=== PATIENT | female | born 1955 | race Caucasian/White ===

== ENCOUNTER → 2019-11-04 11:36 | Outpatient (BNVA) | payer BC, SELFPAY | PROVIDERS: Referring Provider Obstetrics & Gynecology; Visit Provider Obstetrics & Gynecology | DX: N39.46 Mixed incontinence (principal) | CPT/HCPCS: 81003 ==

== ENCOUNTER 2020-02-08 10:29 | Observation (INO) | payer MEDICARE, SELFPAY ==
[2020-02-04 10:31] VITALS: BMI 40.5
--- NOTE | 2020-02-04 10:39 | ECG_ITS ---
Measurements Intervals [place] Rate: 48 P: 42 CO: 164 QRS: -6 QRSD: 91 T: 17 QT: 440 QTc: 396 SINUS BRADYCARDIA MINIMAL VOLTAGE CRITERIA FOR LVH, CONSIDER NORMAL VARIANT POSSIBLE ANTERIOR MYOCARDIAL INFARCTION, PROBABLY OLD No previous ECG available for comparison Electronically Signed On 02-04-2020 18:03:26 CDT by Allison Hayes M.D. [email or web address]
[2020-02-04 10:53] LABS: Basophils % 0.4 %; Eosinophils # 0.2 10^3/uL (0.0-0.8); Eosinophils % 3.4 %; Hematocrit 36.4 % (37.0-47.0); Hemoglobin 11.3 g/dL (11.5-15.3); Lymphocytes # 1.9 10^3/uL (0.8-4.8); Lymphocytes % 33.1 %; Mean Corpuscular Hemoglobin 30.7 pg (28.0-34.0); Mean Corpuscular Volume 98.9 fL (81-99); Mean Platelet Volume 10.3 fL (7.4-10.4); Monocytes # 0.5 10^3/uL (0.2-0.9); Monocytes % 8.8 %; Neutrophils # 3.1 10^3/uL (1.8-7.7); Neutrophils % 54.1 %; Nucleated Red Blood Cells % 0 %; Platelet Count 213 10^3/cmm (130-400); Red Blood Count 3.68 10^6/uL (4.1-5.3); Red Cell Distribution Width 13.5 % (12.1-15.1); White Blood Count 5.7 10^3/uL (4.0-10.0)
--- NOTE | 2020-02-04 10:57 | P.ANESASSM_ITS ---
Pre-Anesthetic Assessment Pre-Anesthetic Assessment: Height/Weight: Height 1.63 m Weight 107.048 kg Preop Diagnosis: uterovaginal prolapse, urinary incontinence Proposed Procedure: Operation Date: 02/08/20 07:00 Proposed Procedures p Anterior Colporrhaphy with Benz's Cauldoplasty 19421 18542 R32 N81.2(Not Applicable) - MD mireille Strong Posterior Colporrhaphy(Not Applicable) - Martin Burgess MD s Total Vaginal Hysterectomy w/ poss bilateral salpingo-oophorectomy 70562(Bilateral) - MD mireille Strong Single incision and urethral sling 66751(Not Applicable) - MD mireille Strong Cystoscopy 29884(Not Applicable) - Martin Burgess MD Social: Social History: Alcohol (0cc) and No tobacco Exam: Pre-Anes Outpt Exam: alert, oriented x 3, clear to auscultation bilaterally and regular rate & rhythm Airway: Submandibular: WNL Cervical ROM: WNL MP: 1 Dentition: False (upper ) and Partials (lower) History/ROS: No significant history except as noted Pulmonary: Pulmonary: None reported CV/HEM: CV/HEM: HTN : Comments: incontinence Hepatic: Hepatic: None reported GI: GI: GERD (occ) Metabolic: Metabolic: Morbid obesity Musc/skel: Musc/skel: Lower Back Pain and OA/DJD Neuropsych: Neuropsych: None reported Anesthetic Plan: ASA status: 3 Anesthesia: Anesthesia Evaluation and General Risk of > 500 ml blood loss (7ml/kg in children): Yes, adequate IV access and fluids planned PFSH Anesthesia PFSH: Medical History Gout Hypertension Hypothyroidism Peripheral edema Surgical History History of cataract surgery (~11/2018) both eyes History of dilation and curettage Status post excision of lipoma Upper back Status post tubal ligation Family History Father Diabetes Thyroid disease Brother Diabetes Mother Thyroid disease Hypertension Colon cancer Sister Breast cancer Social History Smoking and tobacco status: never smoked Alcohol intake: current Alcohol intake frequency: holidays/special occasions on ly Substance/Drug Use: never Data Anesthesia CBC & Chem 7: 02/04/20 10:36 Other Labs: Laboratory Results - last 48 hr 02/04/20 10:36 WBC 5.7 RBC 3.68 L Hgb 11.3 L Hct 36.4 L MCV 98.9 MCH 30.7 MCHC 31.0 RDW 13.5 Plt Count 213 MPV 10.3 Neut % (Auto) 54.1 Lymph % (Auto) 33.1 Garden % (Auto) 8.8 Eos % (Auto) 3.4 Baso % (Auto) 0.4 Neut # (Auto) 3.1 Lymph # (Auto) 1.9 Garden # (Auto) 0.5 Eos # (Auto) 0.2 Baso # (Auto) 0.0 Nucleated RBC % (auto) 0 Nucleated RBCs # 0.0 Cardiac Studies: No Data to Display
[2020-02-04 10:59] LABS: Add Urine Microscopic? NO
[2020-02-04 11:04] LABS: Blood Urea Nitrogen 25 mg/dL (8-23); Calcium 9.2 mg/dL (8.5-10.5); Carbon Dioxide 28 mmol/L (22-29); Chloride 109 mmol/L (98-107); Glomerular Filtration Rate 49.7 mL/min (90-130); Glucose 93 mg/dL (65-115); Osmolality Calculated 303 mOsm/kg (285-295); Sodium 148 mmol/L (136-145)
[2020-02-04 11:18] LABS: Bilirubin Urine Neg (NEGATIVE); Blood Urine Neg (Negative); Glucose Urine UA Norm (Normal); Ketones Urine Negative (Negative); Leukocyte Esterase Urine Negative (Negative); Nitrate Urine Negative (Negative); Protein Urine Neg (Negative); Urine Appearance Clear (CLEAR); Urine Color Yellow (Yellow); Urobilinogen Urine Norm (Negative)
[2020-02-08] VITALS (18 sets, daily range): BP systolic 111–144; BP diastolic 61–84; PULSE 43–62; RESP 12–20; TEMP 36.2–36.7; O2SAT 93–99
--- NOTE | 2020-02-08 06:40 | P.HPUD_ITS ---
Surgery/Procedure H&P Update DATE OF PROCEDURE: February 08, 2020 DATE H&P PERFORMED: 02/04/20 H&P UPDATE INFORMATION: I have reviewed H&P completed within last 30 days, I have examined patient prior to procedure, No changes to prior documentation and H&P is in [facility] [place] date indicated PREOP DIAGNOSIS: uterovaginal prolapse, urinary incontinence PLANNED PROCEDURE: Operation Date: 02/08/20 07:00 Proposed Procedures s Anterior Colporrhaphy with Benz's Cauldoplasty 67165 88916 R32 N81.2(Not Applicable) - Martin Burgess MD s Posterior Colporrhaphy(Not Applicable) - Martin Burgess MD p Total Vaginal Hysterectomy w/ poss bilateral salpingo-oophorectomy 08216(Bilateral) - Martin Burgess MD s Single incision and urethral sling 95170(Not Applicable) - Martin Burgess MD s Cystoscopy 97878(Not Applicable) - Martin Burgess MD
--- NOTE | 2020-02-08 06:40 | W.PM.OPSUD ---
Surgery/Procedure H&P Update DATE OF PROCEDURE: February 08, 2020 DATE H&P PERFORMED: 02/04/20 H&P UPDATE INFORMATION: I have reviewed H&P completed within last 30 days, I have examined patient prior to procedure, No changes to prior documentation and [place] is [place] [facility] [place] date indicated PREOP DIAGNOSIS: uterovaginal prolapse, urinary incontinence PLANNED PROCEDURE: Operation Date: 02/08/20 07:00 Proposed Procedures s Anterior Colporrhaphy with Benz's Cauldoplasty 34982 81404 R32 N81.2(Not Applicable) - Martin Burgess MD s Posterior Colporrhaphy(Not Applicable) - Martin Burgess MD p Total Vaginal Hysterectomy w/ poss bilateral salpingo-oophorectomy 62185(Bilateral) - Martin Burgess MD s Single incision and urethral sling 29544(Not Applicable) - Martin Burgess MD s Cystoscopy 65990(Not Applicable) - Martin Burgess MD
[2020-02-08] MEDS: sodium chloride 0.9% 1,000 ML 30 ML IV (06:41)
[2020-02-08] MEDS: ketorolac 30 mg/mL INJ IVP ×2 (06:44→13:50)
--- NOTE | 2020-02-08 07:05 | ANES.PREANE2 ---
Pre-Anesthetic Assessment Pre-Anesthetic Assessment: Height/Weight: Height 1.63 m Weight 107.048 kg Temp Pulse Resp BP Pulse Ox 97.8 F 49 L 16 144/83 97 02/08/20 06:13 02/08/20 06:13 02/08/20 06:13 02/08/20 06:13 02/08/20 06:13 Preop Diagnosis: uterovaginal prolapse, urinary incontinence Proposed Procedure: Operation Date: 02/08/20 07:00 Proposed Procedures s Anterior Colporrhaphy with Benz's Cauldoplasty 46707 30177 R32 N81.2(Not Applicable) - Martin Burgess MD s Posterior Colporrhaphy(Not Applicable) - Martin Burgess MD p Total Vaginal Hysterectomy w/ poss bilateral salpingo-oophorectomy 01758(Bilateral) - Mratin Burgess MD s Single incision and urethral sling 43032(Not Applicable) - Martin Burgess MD s Cystoscopy 58067(Not Applicable) - Martin Burgess MD Was Beta Segun taken within 24 hours: Yes Last intake: Intake Last Liquid Date 02/08/20 Last Liquid Time 05:00 Last Solid Date 02/07/20 Last Solid Time 20:00 Social: Social History: No alcohol and No tobacco Exam: Pre-Anes Outpt Exam: alert, oriented x 3, clear to auscultation bilaterally and regular rate & rhythm Airway: Submandibular: WNL Cervical ROM: WNL MP: 2 (Small mouth opening) Dentition: False History/ROS: No significant complaints Pulmonary: Pulmonary: None reported CV/HEM: CV/HEM: None reported : : None reported Hepatic: Hepatic: None reported GI: GI: None reported Metabolic: Metabolic: Morbid obesity Comments: Gout, Hypothroidism Musc/skel: Musc/skel: None reported Neuropsych: Neuropsych: None reported Anesthetic Plan: ASA status: 3 Anesthesia: General Risk of > 500 ml blood loss (7ml/kg in children): Yes, adequate IV access and fluids planned Meds/Allergies Current Medications: Current Medications Generic Name Dose Route Start Last Admin Trade Name Freq PRN Reason Stop Dose Admin Sodium Chloride 1,000 mls @ 30 ml s/hr 02/08/20 06:00 02/08/20 06:41 Sodium Chloride 0.9% IV 02/09/20 05:59 30 mls/hr .Q24H RADHA Administration PFSH Anesthesia PFSH: Medical History Gout Hypertension Hypothyroidism Peripheral edema Surgical History History of cataract surgery (~11/2018) both eyes History of dilation and curettage Status post excision of lipoma Upper back Status post tubal ligation Family History Father Diabetes Thyroid disease Brother Diabetes Mother Thyroid disease Hypertension Colon cancer Sister Breast cancer Social History Smoking and tobacco status: never smoked Alcohol intake: current Alcohol intake frequency: holidays/special occasions only Data Anesthesia CBC & Chem 7: 02/04/20 10:36 02/04/20 10:36 Cardiac Studies: No Data to Display
--- NOTE | 2020-02-08 07:35 | SUR.OPER ---
0730 - pt's (Erik) notified of surgery start via his cell phone.
[2020-02-08] MEDS: vasopressin 20 unit/mL INJ INJECTION (08:36)
--- NOTE | 2020-02-08 09:49 | P.OP_ITS ---
Operative Report Date of procedure: February 08, 2020 Pre-op Diagnosis: uterovaginal prolapse, Vaginal enterocele, Urinary incontinence Post-op Diagnosis: Incomplete uterovaginal prolapse, Vaginal enterocele, Urinary incontinence Procedure Done: Total vaginal hysterectomy, Benz's culdoplasty, Anterior and posterior repair, Single incision suburethral sling, Cystoscopy Specimens removed/disposition: Uterus, cervix Surgeon: Martin Burgess Informix Developer: None Anesthesia: General Estimated blood loss (mL): 300 IV fluids (mL): 1,200 Complications: None Findings: Second-degree uterine prolapse with second-degree cystocele and second-degree low rectocele. Both ovaries palpated a small Brief History: Patient is a 64-year-old white female 3, para 0-3-0-2 who is postmenopausal. She presented to the office on 11/04/2019 with complaint of urinary incontinence. She reported that it had been present for many years and has been slowly worsening. It has progressed to the point that she was wearing pads daily. She was reporting leaking with coughing, sneezing, laughing , etc. that occurred several times per day. She also reported your urgency symptoms with incontinence which was worse first thing in the morning. She reports leaking with changing in positions especially if she has a full bladder. On exam, she was found to have a first to second-degree uterine prolapse, second-degree central cystocele on Valsalva and second-degree rectocele. She was also noted to have hypermobility of the urethra. She was also noted to have an enterocele. Treatment options were discussed and she is presenting for surgical repair at this time. Procedure: Patient was taken to the operating room where general anesthesia was obtained. She was prepped and draped in usual sterile fashion in the dorsal supine position with legs in Oliverio style stirrups. Sequential compression boots were placed prior to starting the case. Benitez catheter was inserted and exam under anesthesia was performed. She was found to have second-degree uterine prolapse with second-degree cystocele and second-degree low rectocele. Weighted speculum was placed in the vagina and the cervix was grasped with a single-tooth tenaculum. The cervix was circumferentially injected with dilute Pitressin solution. A circumferential incision was made with a knife and the bladder was bluntly dissected off of the lower uterine segment. Posterior cul- de-sac was sharply entered and the peritoneum tagged to the vaginal mucosa in the midline. Long weighted retractor was placed in the posterior cul-de-sac. The uterosacral ligaments were clamped, cut, and suture ligated with 0 Vicryl suture bilaterally. The cardinal ligament complexes were clamped, cut, and suture ligated with 0 Vicryl suture bilaterally. The bladder was sharply dissected away from the uterus and the anterior cul-de-sac entered. A long right angle retractor was used to elevate the bladder away from the uterus. The remaining portions of the broad ligament were serially clamped, cut, and suture ligated with 0 Vicryl suture bilaterally until the uterus was completely excised. The pedicles were inspected and noted to be hemostatic. Both ovaries were retracted laterally and not able to be visualized. They were palpated as small. Decision was made not to remove ovaries. The posterior edge of the vaginal cuff was oversewn with 0 Vicryl suture in a running locking fashion incorporating the peritoneum to the edge of the cuff. This started from the 3:00 position and extended around to the 9:00 position posteriorly. Using 0 Vicryl suture a Benz's culdoplasty was performed. Stitch was placed through the posterior vaginal cuff at the 5 o'clock position. The left uterosacral ligament was incorporated into the stitch and the posterior peritoneum was picked up in a strafing fashion until the right uterosacral ligament was reached. It was incorporated into the stitch and the suture brought back out through the posterior cuff at the 7 o'clock position. This was then held. The anterior vaginal wall was injected with dilute Pitressin solution. Starting at the vaginal cuff, the anterior vaginal wall was undermined and opened in the midline. The edges were grasp with Allis clamps and skin was dissected from the vesico-vaginal fascia using a combination of sharp and blunt dissection. This was extended from the mid urethra to the vaginal cuff and to the lateral aspects of the anterior vaginal wall. Areas bleeding were brought under control using electrocautery. 1 area of bleeding was brought under control using 3-0 chromic suture in [id number] fashion. Using 2-0 Vicryl suture, stitches were placed laterally into the corners of the vesico-vaginal fascia and brought across to the contralateral side picking up the lateral corner. Multiple stitches were placed along the anterior wall. Once all stitches were placed these were tied in the midline essentially eliminating the cystocele. Using the Solyx single incision sling, the sling was passed at the mid urethral level at a 45 degree angle to the urethra through the periurethral tissue and directed behind the pubic rami on the right side. This was repeated in a similar fashion on the contralateral side and the sling was brought up until it just slightly elevated the urethra and periurethral tissue. Benitez catheter was removed and cystoscopy performed. The entire bladder was inspected and no injuries, suture material, or sling material noted in the bladder. No bladder masses noted. Both ureters were noted to be effluxing urine well. Bladder was drained and Benitez catheter was reinserted. Excess vaginal mucosa was excised. The vaginal mucosa was closed using 3-0 Vicryl suture in a running locking fashion. The vaginal cuff was closed using 0 Vicryl suture in a vertical fashion using interrupted [id number] stitches. Once the cuff was fully closed, the enterocele stitch was tied, elevating the posterior vaginal cuff. Benitez catheter was removed and cystoscopy again performed. Both ureters were noted to be effluxing urine well. Bladder was drained and Benitez catheter reinserted. Perineum was injected with dilute Pitressin solution. A wedge shaped piece of skin was excised from the perineum. Posterior vaginal wall was injected with dilute Pitressin solution. The vaginal mucosa was undermined in the midline and skin incision made. The vaginal mucosa was dissected from the rectovaginal fascia using a combination of sharp and blunt dissection to length of approximately three quarters of the length of the posterior wall and to the lateral aspects bilaterally. The rectovaginal fascia was plicated in the midline using interrupted stitches of 2-0 Vicryl suture. This reduced the rectocele. Excess vaginal mucosa was excised. The vaginal mucosa was closed in a running locking fashion using 3-0 Vicryl suture until the hymenal ring was reached and the suture was held. The perineal body was further built up using interrupted stitches of 2-0 Vicryl suture. A transition stitch was made using the previously held 3-0 Vicryl suture and the bulbocavernosus muscles were then incorporated into the stitch and tied in the midline. The superficial portion perineum was reapproximated using 3-0 Vicryl suture in a running fashion. The perineal skin was reapproximated using 3-0 Vicryl suture in a subcuticular fashion. The vagina was packed with 1 inch Nu Gauze. Patient tolerated procedure well. Sponge, needle, and instrument counts were correct. DRAINS: Benitez catheter POSTOPERATIVE STATUS: The patient was transferred to the recovery room in satisfactory condition. Associated Problem List Diagnoses (1) Vaginal enterocele: (2) Urinary incontinence: Qualifiers: Urinary Incontinence type: mixed stress and urge incontinence Qualified Code(s): N39.46 - Mixed incontinence (3) Uterovaginal prolapse, incomplete:
[2020-02-08] MEDS: dextrose 5%-lactated ringers 1,000 ML 125 ML IV ×2 (12:39→19:30)
[2020-02-08] MEDS: phenazopyridine 100 mg Tablet 200 MG PO ×2 (15:08→20:41)
[2020-02-08] MEDS: metoprolol tartrate 25 mg Tablet PO (17:03)
[2020-02-08] MEDS: docusate sodium 100 mg Capsule PO (17:03)
[2020-02-09] VITALS: BP 111/68; PULSE 49; RESP 17; TEMP 36.7; O2SAT 95
[2020-02-09] MEDS: dextrose 5%-lactated ringers 1,000 ML 125 ML IV (02:19)
[2020-02-09 03:59] VITALS: BP 110/70; PULSE 58; RESP 18; TEMP 36.8; O2SAT 95
[2020-02-09 05:05] LABS: Hematocrit 30.8 % (37.0-47.0); Hemoglobin 9.5 g/dL (11.5-15.3); Mean Corpuscular HGB Conc 30.8 g/dL (30.0-36.0); Mean Corpuscular Hemoglobin 30.8 pg (28.0-34.0); Mean Platelet Volume 10.5 fL (7.4-10.4); Platelet Count 195 10^3/cmm (130-400); Red Blood Count 3.08 10^6/uL (4.1-5.3); Red Cell Distribution Width 13.6 % (12.1-15.1); White Blood Count 10.4 10^3/uL (4.0-10.0)
--- NOTE | 2020-02-09 05:11 | PC.NURSE ---
End of Shift: Patient has done well this shift. No c/o pain for any of the shift. States she did have pressure at which scheduled Ibuprofen helped and declined needing hydrocodone. Patient output has been adequate. States she has not passed flatus. No BM this shift. No nausea or vomiting. Vaginal packing in place. Scant bleeding noted on feminine pad.
--- NOTE | 2020-02-09 07:08 | PM.PN ---
Subjective Subjective: Interval history: Patient reports doing well this morning. She states that her pain is been well controlled with the ibuprofen. She denies lightheadedness or dizziness with sitting up in bed. She denies shortness of breath or chest pain. She denies nausea or vomiting and has been tolerating clear liquids. She reports passing flatus this morning. Vitals/I&O/Wt Last Vital Signs Temp 98.3 F 02/09/20 03:59 Pulse 58 L 02/09/20 03:59 Resp 18 02/09/20 03:59 BP 110/70 02/09/20 03:59 Pulse Ox 95 02/09/20 03:59 02/08/20 02/09/20 02/09/20 22:59 06:59 14:59 Intake Total 1426.25 / 1976.25 995.833 / 2972.083 Output Total 400 / 800 400 / 1200 Balance 1026.25 / 1176.25 595.833 / 1772.083 Physical Exam Const: COMMON NORMALS: no acute distress, average body habitus, alert and well nourished GENERAL APPEARANCE: well developed ORIENTATION/CONSCIOUSNESS: Yes oriented to person, Yes oriented to place and Yes oriented to time Resp: COMMON NORMALS: normal respiratory effort and clear to auscultation bilaterally AUSCULTATION: clear to auscultation bilaterally Cardio: COMMON NORMALS: regular rate, regular rhythm, No gallops present (Cardio), No murmurs present (Cardio) and No rub (Cardio) RATE: regular rate RHYTHM: regular rhythm GI: COMMON NORMALS: Soft to palpation, No hepatosplenomegaly present and no masses AUSCULTATION: Yes normoactive bowel sounds PALPATION: Yes Soft to palpation, Yes Tenderness to palpation present (GI) (Mild lower abdominal), Yes No hepatosplenomegaly present and No Hernia present : EXTERNAL FEMALE EXAM: No Hernia present OTHER: Vaginal packing removed. Minimal amount of blood on the packing. Extremity: COMMON NORMALS: no calf tenderness Neuro: SENSORIUM/ORIENTATION: Yes alert, Yes oriented to person, Yes oriented to place and Yes oriented to time Psych: COMMON NORMALS: normal affect MOOD & AFFECT: Yes euthymic mood Skin: COMMON NORMALS: no rashes or lesions noted GENERAL SKIN EXAM: no rashes or lesions noted Urinary Catheter Management^: Benitez: Cath Placed During This Visit: yes Urinary Catheter Date of Insertion: 02/08/20 Urinary Catheter Time of Insertion: 07:25 Data : 02/09/20 04:52 02/04/20 10:36 A&P Assessment and plan (1) Uterovaginal prolapse, incomplete: Postoperative day 1, status post TVH, Benz's culdoplasty, A&P repair, SIS, and cystoscopy. Patient doing well this morning. Advance to regular diet this morning. Encouraged ambulation and increased activities. Benitez catheter to be removed this morning and start voiding trials. Goal is for patient to void at least 100 mL with less than 100 left over in the bladder. If were not able to achieve that, then recommend patient be taught self-catheterization and if she is unable to do that then she will have a Benitez catheter replaced. This was discussed with the patient. Plan is for her to be discharged to home later today. Status: Acute (2) Urinary incontinence: Status: Acute Qualifiers: Urinary Incontinence type: mixed stress and urge incontinence Qualified Code(s): N39.46 - Mixed incontinence (3) Vaginal enterocele: Status: Acute (4) Hypertension: Patient has been continued on her home medications which include metoprolol and losartan. Status: Acute (5) Hypothyroidism: Patient has been continued on her levothyroxine. Status: Acute Attestations Medical Necessity Statement*: Patient to be discharged to home later today. Coding Level of Care Code Acute Ventilator Specialist for [facility] Diagnoses Uterovaginal prolapse, incomplete N81.2 Urinary incontinence N39.46 Urinary Incontinence type: mixed stress and urge incontinence Vaginal enterocele N81.5 Hypertension I10 Hypothyroidism E03.9
--- NOTE | 2020-02-09 07:11 | PC.NURSE ---
Dr Steward at , removed vag packing during assessment, no active bleeding noted, orders received for catheter removal and post void residual, DC fluids, and ambulate patient throughout the day.
[2020-02-09 07:23] VITALS: BP 125/59; PULSE 50; RESP 16; TEMP 36.6; O2SAT 99
[2020-02-09] MEDS: docusate sodium 100 mg Capsule PO (08:17)
[2020-02-09 08:18] VITALS: BP 125/59
[2020-02-09] MEDS: losartan 50 mg Tablet 100 MG PO (08:18)
[2020-02-09] MEDS: levothyroxine 100 mcg Tablet PO (08:18)
[2020-02-09] MEDS: phenazopyridine 100 mg Tablet 200 MG PO ×2 (08:18→14:53)
[2020-02-09] MEDS: metoprolol tartrate 25 mg Tablet PO (08:19)
--- NOTE | 2020-02-09 09:42 | PC.CHAP ---
Pastoral Care Encounter/Spiritual Assessment Type of Contact [] Declined lead qa analyst visit [] Patient/Family/Request visit [] Outpatient visit [] Follow-up visit [] Physician referral [] Code/Alert [x] Routine visit [] Staff referral [] Actively dying [] Patient sleeping [] Family support [] [] Out of room [] Palliative care [] [] Receiving care in room [] Pre-surgical visit [] Trauma [] Long length of stay [] ICU visit [] Other: Relational/Emotional Strength [] Patient feels connected with others/family/visitors/staff [] Distress [] Loneliness/isolation [] Abandonment Spirituality of Patient [] Person of Molly [] Attends Adventist of their Molly [] Believes in Prayer [] Reads Bible or Pentecostalism materials [] There are Spiritual issues to be addressed Sr. Director Interventions [x] Prayer [] Active listening [] Non-anxious presence [] Spiritual/emotional support [] Crisis/trauma care [] Spiritual counseling [] Bereavement support [] Provided bereavement packet [] Provided Bible/devotional materials [] Provided toy/stuffed animal, coloring book to patient or family member [] Provided Communion [] Anointing/[place] [] Salvation [x] Completed spiritual assessment [] Other: Impact on Illness or Injury [] Angry [] Fearful [] Anxious [] Often cries [] Exhaustion [] Unable to work [] Unable to attend orthodoxy [] Unable to walk/stand [] Unable to read [] Unable to drive [] Unable to eat/drink [] Unable to sleep [] Unable to be with family [] Patient intubated [] Other: Summary Patient feeling much better. Patient feels surgery went well. Time spent with patient 10min
[2020-02-09 11:28] VITALS: BP 113/70; PULSE 57; RESP 16; TEMP 36.6; O2SAT 96
--- NOTE | 2020-02-09 15:26 | PM.DCS ---
Discharge Providers Date of Admission: 02/08/20 10:29 Date of Discharge: February 09, 2020 Attending Provider at Admission: Martin Burgess MD Attending Provider at Discharge: Martin Burgess MD Primary Care Provider: Dustin Moran DO Diagnoses at Discharge Discharge Diagnosis (1) Uterovaginal prolapse, incomplete: Status: Acute (2) Urinary incontinence: Status: Acute Qualifiers: Urinary Incontinence type: mixed stress and urge incontinence Qualified Code(s): N39.46 - Mixed incontinence (3) Vaginal enterocele: Status: Acute (4) Hypertension: Status: Acute (5) Hypothyroidism: Status: Acute Reason for Visit Reason for Visit: Urinary Incontinence, Uterovaginal Prolapse Hospital Course Hospital Course: Patient is a 64-year-old white female 3, para 0-3-0-2 who is postmenopausal. Patient had presented to the office on 11/04/2019 complaining of urinary incontinence. This is been present for many years and was slowly worsening. It had progressed to the point of having to wear pads daily. She leaks with cough, sneeze, laugh, etc. On exam, she had been found to have a first to second-degree uterine prolapse, second-degree cystocele on Valsalva and second-degree rectocele. She also had hypermobility of the urethra. Enterocele was also noted on exam. Treatment options were discussed and she presenting for surgical treatment. She had a total vaginal hysterectomy, Benz's culdoplasty, anterior and posterior vaginal repair, and single incision suburethral sling with cystoscopy performed on 02/08/2020. She did well following surgery. POSTOPERATIVE DAY 1 Patient was doing well in the morning. She was tolerating clear liquids without nausea or vomiting. She denied lightheadedness or dizziness with sitting up in bed. Her pain was well controlled on oral medications. She was afebrile with stable vital signs. Benitez catheter was discontinued and voiding trial started. Diet was advanced to a regular diet. Activities were increased. On voiding trials, she had adequate voids with low residual. She was discharged to home on postoperative day 1. Discharge instructions were discussed with her. Patient was to follow-up in the office in 2 and 6 weeks following surgery. Physical Exam Urinary Catheter Management^: Benitez: Cath Placed During This Visit: yes, but has since been removed by the nurse Reason for Continuing Indwelling Catheter: Decision to DC Catheter Urinary Catheter Date of Insertion: 02/08/20 Urinary Catheter Time of Insertion: 07:25 Date Urinary Catheter Removed: 02/09/20 Time Urinary Catheter Discontinued: 07:36 Discharge Data Data Completed and Pending: Pending at discharge Category Date Time Status Pathology: Surgic al [PTH] Routine Pth 02/08/20 08:35 Received Labs from last 24 hours 02/09/20 04:52 WBC 10.4 H RBC 3.08 L Hgb 9.5 L Hct 30.8 L MCV 100.0 H MCH 30.8 MCHC 30.8 RDW 13.6 Plt Count 195 MPV 10.5 H Vitals: Last Vital Signs Temp 97.9 F 02/09/20 11:28 Pulse 57 L 02/09/20 11:28 Resp 16 02/09/20 11:28 BP 113/70 02/09/20 11:28 Pulse Ox 96 02/09/20 11:28 Discharge Plan Discharge Patient Disposition: Home, Self-Care Condition: Stable Prescriptions: New hydrocodone-acetaminophen 5-325 mg Tablet 1 - 2 tab PO Q6H PRN (Reason: Moderate To Severe Pain) Qty: 10 RF: 0 Continued metoprolol tartrate 25 mg tablet 25 mg PO BID RF: 0 losartan 100 mg tablet 100 mg PO DAILY RF: 0 furosemide 40 mg tablet 40 mg PO DAILY RF: 0 levothyroxine 100 mcg capsule 100 mcg PO DAILY RF: 0 allopurinol 100 mg tablet 100 mg PO BID RF: 0 scopolamine base 1 mg over 3 days patch 3 day 1 patch TRANSDERMA ONCE Qty: 1 RF: 0 Premarin 0.625 mg/gram Cream 0.625 mg VAGINAL DAILY RF: 0 Discharge Orders: Discharge Order (Routine); Ordered 02/09/20 Ordered By: Martin Burgess Referrals: Martin Burgess MD [Physician] - 02/21/20 9:45 am (APPOINTMENT WITH [facility] 13 AT 12:45 Keep scheduled appointments in 2 and 6 weeks) Discharge Diet: Regular Discharge Activity: Limit activity as instructed Patient Instructions: Hydrocodone/Acetaminophen (By mouth), Urinary Incontinence (GEN), Posterior Vaginal Repair (DC) Discharge Date/Time: 02/09/20 15:55 Discharge Attestations Time Spent in Discharge Care*: less than 30 min Quality Metrics Clinical Quality Measures During this hospital stay, did patient experience: None Coding Level of Care Code 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
[2020-02-09 15:49] VITALS: BP 113/70; PULSE 57; RESP 16; TEMP 36.6; O2SAT 96
== END 2020-02-09 15:55 | disposition home or self-care (01) ==
LOC: MEDSURG 10:40
PROVIDERS: Admitting Provider Obstetrics & Gynecology; PCP Family Medicine; Visit Provider Obstetrics & Gynecology
PROC: 0JQC0ZZ Repair Pelvic Region Subcutaneous Tissue and Fascia, Open Approach (ICD-10-PCS; CPT 57240; principal; 2020-02-08 07:00)
PROC: (CPT 57250; 2020-02-08 07:00)
PROC: (CPT 57260; 2020-02-08 07:00)
PROC: (CPT 57288; 2020-02-08 07:00)
PROC: 0TJB8ZZ Inspection of Bladder, Via Natural or Artificial Opening Endoscopic (ICD-10-PCS; CPT 52000; 2020-02-08 07:00)
DX: N81.2 Incomplete uterovaginal prolapse (principal); N39.46 Mixed incontinence; I10 Essential (primary) hypertension; E03.9 Hypothyroidism, unspecified; K21.9 Gastro-esophageal reflux disease without esophagitis; E66.01 Morbid (severe) obesity due to excess calories; Z68.41 Body mass index [BMI] 40.0-44.9, adult; M19.90 Unspecified osteoarthritis, unspecified site
CPT/HCPCS: 57260; 57288; 58270; 12345; 36415; 51798; 80048; 81003; 85025; 85027; 86850; 86900; 87086; 88307; 93005; 96365; 96374; 96375; C1771; G0378; J0131; J0690; J1100; J1885; J2001; J2405; J2704; J3010; J3490; J7030

== ENCOUNTER 2020-08-21 13:08 | Outpatient (CLI) | payer MEDICARE, SELFPAY ==
--- NOTE | 2020-08-21 13:30 | USCV_ITS ---
Nadeen Nelson Age: 65 Gender: F : 1955 Exam Date: 08/21/2020 13:27 Ordering Phys: Allison Hayes MD ([email or web address]) Technologist: Geraldo Sheridan [place] [facility] [place]: [place] BP: 125 / 75 HR: 55 Rhythm: Sinus Technical Quality: Fair MEASUREMENTS (Male / Female) Normal Values 2D ECHO LV Diastolic Diameter PLAX 4.3 cm 4.2 - 5.9 / 3.9 - 5.3 cm LV Systolic Diameter PLAX 2.3 cm IVS Diastolic Thickness 1.2 cm 0.6 - 1.0 / 0.6 - 0.9 cm IVS Systolic Thickness 1.6 cm LVPW Diastolic Thickness 1.1 cm 0.6 - 1.0 / 0.6 - 0.9 cm LVPW Systolic Thickness 1.3 cm LVOT Diameter 2.1 cm LV Ejection Fraction 2D Teich 77.0 % LV Ejection Fraction MOD 2C 69.6 % LV Ejection Fraction 2C AL 70.8 % LA Diameter 3.9 cm LA Width 3.5 cm LA Height 6.1 cm RA Width 4.0 cm RA Height 5.2 cm Aorta at Sinotubular Diameter 2.3 cm M-MODE LV Diastolic Diameter MM 5.6 cm 4.2 - 5.9 / 3.9 - 5.3 cm LV Systolic Diameter MM 3.4 cm LV Ejection Fraction MM Teich 69.3 % IVS Diastolic Thickness MM 0.8 cm 0.6 - 1.0 / 0.6 - 0.9 cm IVS Systolic Thickness MM 1.7 cm LVPW Diastolic Thickness MM 1.3 cm 0.6 - 1.0 / 0.6 - 0.9 cm LVPW Systolic Thickness MM 2.0 cm RV Diastolic Diameter MM 1.2 cm Aortic Annulus Diameter 3.3 cm LA Ao Ratio MM 1.3 MV E Point Septal Separation 1.3 cm DOPPLER AV Peak Velocity 186.7 cm/s LVOT Peak Velocity 131.0 cm/s AV Area Cont Eq vti 2.4 cm squared AV Area Cont Eq pk 2.4 cm squared MV Area PHT 5.0 cm squared Mitral E to A Ratio 0.7 MV E' Velocity 50.0 cm/s Mitral E to MV E' Ratio 10.3 Mitral E to LV E' Lateral Ratio 10.3 Mitral E to LV E' Septal Ratio 10.3 TR Peak Velocity 147.7 cm/s TR Peak Gradient 8.7 mmHg TV Peak E Velocity 87.0 cm/s Right Atrial Pressure 3.0 mmHg Pulmonary Artery Systolic Pressu 11.7 mmHg FINDINGS Left Ventricle Normal left ventricular size, systolic function and wall thickness, with no regional wall motion abnormalities. Left ventricular ejection fraction is estimated at 60 %. Indeterminate diastolic function. Right Ventricle Normal right ventricular size and systolic function. Tricuspid valve regurgitant jet is inadequate for estimation of right ventricular systolic pressure. Right Atrium Normal right atrial size. Right atrial pressure estimated at 3 mmHg. Left Atrium Mildly increased left atrial size. Mitral Valve Moderate mitral annular calcification. Mildly thickened mitral valve. No mitral valve stenosis. Trace mitral valve regurgitation. Aortic Valve Aortic valve not well visualized. No aortic valve stenosis. No aortic valve regurgitation. Tricuspid Valve Structurally normal tricuspid valve. No tricuspid valve stenosis. Trace to mild tricuspid valve regurgitation. Pulmonic Valve Pulmonic valve not well visualized. No pulmonary valve stenosis. Trace pulmonary valve regurgitation. Pericardium No pericardial effusion. Aorta Normal size aortic root and proximal ascending aorta. Normal- sized inferior vena cava. CONCLUSIONS 1. Normal left ventricular size, systolic function and wall thickness, with no regional wall motion abnormalities. Left ventricular ejection fraction is estimated at 60 %. Indeterminate diastolic function. 2. Normal right ventricle size and systolic function. 3. Mildly increased left atrial size. 4. Trace to mild tricuspid valve regurgitation. 5. No prior similar studies to compare Allison Hayes MD (Electronically Signed) Final Date: 22 August 2020 18:02 S
== END 2020-08-21 13:09 | disposition home or self-care (01) ==
LOC: US 13:09
PROVIDERS: PCP Family Medicine; Visit Provider Internal Medicine Cardiovascular Disease
DX: R01.1 Cardiac murmur, unspecified (principal); I07.1 Rheumatic tricuspid insufficiency
CPT/HCPCS: 93306

== ENCOUNTER 2020-09-25 10:01 | Outpatient (CLI) | payer MEDICARE, SELFPAY ==
--- NOTE | 2020-09-25 10:13 | MM_ITS ---
WS: [id number] SCREENING DIGITAL MAMMOGRAM WITH CAD HISTORY: SCREENING COMPARISON: 07/26/2019, 05/27/2018 and 04/27/2015 Bilateral CC and MLO views submitted. Computer aided detection analyzed. Breast composition: There are scattered areas of fibroglandular density. Asymmetry measuring 12 mm al mariela the medial inferior LEFT breast slightly more prominent as compared to the most recent study. Not seen on the examination from 2018. Additional scattered fibroglandular asymmetries are stable. MM/[place] [id number] IMPRESSION: BI-RADS: 0-Incomplete: Need additional imaging evaluation FOLLOW UP: Need Additional Imaging LEFT breast: Spot compression views (CC and MLO). True ML. Ultrasound to follow if abnormality persists.
== END 2020-09-25 10:02 | disposition home or self-care (01) ==
LOC: RADSHAW 10:06
PROVIDERS: PCP Family Medicine; Visit Provider Family Medicine
DX: Z12.31 Encounter for screening mammogram for malignant neoplasm of breast (principal); N64.89 Other specified disorders of breast
CPT/HCPCS: 77067

== ENCOUNTER 2020-10-30 08:13 | Outpatient (CLI) | payer MEDICARE, SELFPAY ==
--- NOTE | 2020-10-30 08:20 | US_ITS ---
WS: [id number] ADDITIONAL VIEWS LEFT MAMMOGRAM LEFT BREAST ULTRASOUND HISTORY: INCONCLUSIVE MAMMOGRAM COMPARISON: 09/25/2020, 07/26/2019 and 05/27/2018 LEFT MAMMOGRAM: Spot compression views and true ML. Asymmetry persists in the medial inferior LEFT breast. Slightly less nodular in appearance and more e longated. No distortion or calcifications. LEFT BREAST ULTRASOUND 2-D and color Doppler imaging submitted. At 6:00 hypoechoic lobulated nodule may be a complex cyst measuring 6 x 4 x 2 mm. No increased vascul arity. At 9:00, 2 cm from the nipple is an elongated hypoechoic mass with peripheral increased vascul arity measuring 1.1 x 0.9 x 0.5 cm. There is an adjacent small nodule which is more hypoechoic measur ing 4 x 5 x 2 mm. US/US breast LT limited* [id number] IMPRESSION: BI-RADS: 4-Suspicious Finding-Biopsy Should Be Considered FOLLOW UP: Biopsy Recommended Biopsy recommended of the hypoechoic mass which is elongated at 9:00, 2 cm from the nipple in the LEFT breast. Ultrasound biopsy recommended. This corresponds in size and appearance as compared to the mammogram. Notified Dustin Moran DO at 10/30/2020 9:21 AM. LEFT a message at [facility].
== END 2020-10-30 08:14 | disposition home or self-care (01) ==
LOC: RADSHAW 08:16
PROVIDERS: PCP Family Medicine; Visit Provider Family Medicine
DX: R92.2 Inconclusive mammogram (principal); N63.25 Unspecified lump in the left breast, overlapping quadrants
CPT/HCPCS: 76642; 77065

== ENCOUNTER 2020-11-14 12:11 | Outpatient (CLI) | payer MEDICARE, SELFPAY ==
--- NOTE | 2020-11-14 12:17 | US_ITS ---
WS: [id number] ULTRASOUND-GUIDED LEFT BREAST BIOPSY CLINICAL INFORMATION: R92.8 - Other abnormal and inconclusive findings on diagnostic imaging of breas t COMPARISON: None. FINDINGS: The procedure including risks, benefits, and complications were discussed with the patient who agreed to proceed. Using sterile technique patient was prepped and draped in the usual sterile fashion. Aft er 1% lidocaine utilizing real-time ultrasound guidance 5 14-gauge cores were obtained of the left br east lesion at the 9 o'clock position. Subsequently a titanium clip was placed in the biopsy cavity.N o immediate complications. PATHOLOGY DEMONSTRATES A. Breast, left, biopsy: -Benign breast tissue with fibrocystic changes and stromal sclerosis. -No malignancy identified. US/[place] [id number] IMPRESSION: 1. Uncomplicated ultrasound-guided left breast biopsy. 2. The pathology demonstrates benign breast tissue. BI-RADS: 2-Benign FOLLOW UP: 1 Year Follow-up RECOMMEND RETURN TO ANNUAL SCREENING MAMMOGRAPHY.
== END 2020-11-14 12:12 | disposition home or self-care (01) ==
LOC: RAD 12:16
PROVIDERS: PCP Family Medicine; Visit Provider Surgery
DX: R92.8 Other abnormal and inconclusive findings on diagnostic imaging of breast (principal)
CPT/HCPCS: 19083; 88305

== ENCOUNTER → 2021-05-22 00:01 | Outpatient (BNVA) | payer MEDICARE, SELFPAY | PROVIDERS: PCP Family Medicine; Referring Provider Dermatology; Visit Provider Dermatology | DX: Z01.89 Encounter for other specified special examinations (principal) ==

== ENCOUNTER 2021-10-11 06:00 | Outpatient (RCR) | payer MEDICARE, SELFPAY | END 2021-10-29 23:59 | disposition home or self-care (01) | LOC: MPT 06:00 | PROVIDERS: PCP Family Medicine; Referring Provider Physical Medicine & Rehabilitation; Visit Provider Physical Medicine & Rehabilitation | DX: M25.511 Pain in right shoulder (principal) | CPT/HCPCS: 97110; 97140; 97161 ==

== ENCOUNTER 2021-10-30 06:00 | Outpatient (RCR) | payer MEDICARE, SELFPAY | END 2021-11-06 23:59 | disposition home or self-care (01) | LOC: MPT 06:00 | PROVIDERS: PCP Family Medicine; Referring Provider Physical Medicine & Rehabilitation; Visit Provider Physical Medicine & Rehabilitation | DX: M25.511 Pain in right shoulder (principal) | CPT/HCPCS: 97110 ==

== ENCOUNTER → 2021-11-13 09:55 | Outpatient (BNVA) | payer SELFPAY | PROVIDERS: PCP Family Medicine; Referring Provider Dermatology; Visit Provider Dermatology | DX: Z01.89 Encounter for other specified special examinations (principal) ==

== ENCOUNTER → 2022-07-05 09:24 | Outpatient (BNVA) | payer MEDICARE, SELFPAY | PROVIDERS: PCP Family Medicine; Visit Provider Family Medicine | DX: R05.9 Cough, unspecified (principal); M25.561 Pain in right knee | CPT/HCPCS: 71046; 73560 ==

== ENCOUNTER → 2022-08-01 10:50 | Outpatient (BNVA) | payer MEDICARE, SELFPAY | PROVIDERS: PCP Family Medicine; Visit Provider Internal Medicine Cardiovascular Disease | DX: R00.2 Palpitations (principal); I10 Essential (primary) hypertension; R00.1 Bradycardia, unspecified | CPT/HCPCS: 99214 ==

== ENCOUNTER 2022-10-19 05:28 | Emergency (ER) | payer MEDICARE, SELFPAY ==
[2022-10-19] VITALS (7 sets, daily range): BP systolic 166–197; BP diastolic 85–90; PULSE 46–50; RESP 16; TEMP 36.6; O2SAT 95–99; BMI 40.1
--- NOTE | 2022-10-19 06:31 | CTR_ITS ---
PROCEDURE INFORMATION: Exam: CT Head Without Contrast Exam date and time: 10/19/2022 6:42 AM Age: 67 years old Clinical indication: Pain; Headache; Migraine; Aura effect not specified; Additional info: Headache, whol, david intracranial bleed TECHNIQUE: Imaging protocol: Computed tomography of the head without contrast. Radiation optimization: All CT scans at this facility use at least one of these dose optimization techniques: automated exposure control; mA and/or kV adjustment per patient size (includes targeted exams where dose is matched to clinical indication); or iterative reconstruction. Other protocol: This patient has received 0 known CTs and 0 known cardiac nuclear medicine studies in the 12 months prior to the current study. COMPARISON: No relevant prior studies available. RADIATION DOSE METRICS: Total DLP (mGy-cm): 1026.28 FINDINGS: Brain: No acute intracranial hemorrhage or mass effect. No definite acute infarct by CT. Cerebral ventricles: Ventricle size is normal for age. Paranasal sinuses: Prominent opacity/fluid in the frontal sinuses, almost completely opacifying the sinuses. Much of the fluid is relatively high in attenuation, suggesting a chronic component. Still, superimposed acute sinusitis is possible, please correlate clinically. Included paranasal sinuses otherwise appear essentially clear. Mastoid air cells: No significant acute finding. Bones/joints: No definite acute skull fracture. Soft tissues: No significant acute finding. Vasculature: Vascular calcifications in the internal carotid arteries. CT/CT head wo con* [id number] IMPRESSION: 1. No acute intracranial hemorrhage or mass effect. 2. Paranasal sinus findings as discussed above. 3. Other findings discussed above.
[2022-10-19] MEDS: acetaminophen 500 mg Tablet 1000 MG PO (07:18)
[2022-10-19] MEDS: sodium chloride 0.9% 1,000 ML 999 ML IV (07:20)
[2022-10-19] MEDS: diphenhydrAMINE 50 mg/mL SDV 1mL 25 MG IVP (07:23)
[2022-10-19] MEDS: prochlorperazine 10 mg/2 mL Inj IVP (07:29)
--- NOTE | 2022-10-19 07:45 | PC.NURSE ---
Addendum entered by Nya Mcneil RN 10/19/22 07:46: pt reports this is normal for her Original Note: Dr Vides notified pt's heart rate ranging 44-50s
--- NOTE | 2022-10-19 07:57 | PC.NURSE ---
pt reports she feels restless and unable to get comfortable. Dr. Vides notified, physician to room to speak with pt
--- NOTE | 2022-10-19 08:27 | W.ED.HA ---
HPI - Headache General: Chief Complaint: Headache Stated Complaint: migraine, n/v Time Seen by Provider: 10/19/22 05:53 History of Present Illness: 67-year-old female with past medical history of migraines presenting with worst migraine she has ever had. States at home she takes Excedrin and Tylenol for migraines however this has not improved his migraine whatsoever. The migraine started yesterday at approximately 9 AM suddenly and progressively got worse. It progressed to maximum intensity over the course of 30 minutes and has not abated. She states that is associated with instability on her feet and intractable nausea and vomiting. This intractable nausea and vomiting is atypical for her. Denies fevers, sweats, chills, neck pain. Ambulated to the emergency department. 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 Associated symptoms: Reports nausea and vomiting; Deny chest pain, fever(s) or rash Review of Systems General: Reports: 10 or more systems reviewed and unremarkable except in HPI and below Const: Denies: fever(s), chills, body aches or change in appetite Eyes: Reports: eye discomfort; Denies: change in vision, blurry vision or blind spots ENMT: Denies: throat pain, uvular edema, enlarged tonsils or odynophagia Card: Denies: chest pain, palpitations or irregular heart rhythm Resp: Denies: dyspnea or productive cough GI: Reports: nausea and vomiting; Denies: abdominal pain : Denies: flank pain or difficulty voiding Musc: Denies: neck pain or back pain Skin/Breast: Denies: rash or pruritus Neuro: Reports: headache(s) and other ([place] lightheaded when walking around.); Denies: numbness in extremities, weakness in extremities, sensory changes, lack of coordination, difficulty walking, frequent falls or behavioral changes Psych: Denies: anxiety or depression Endo: Denies: polyuria, polydipsia or tired all the time Juanito/Lymph: Denies: easy bruising or easy bleeding All/Imm: Denies: urticaria or throat swelling PFSH ED PFSH: Medical History Abnormal mammogram of left breast Bradycardia Gout Hypertension Hypothyroidism Surgical History History of cataract surgery (~11/2018) both eyes History of dilation and curettage History of total vaginal hysterectomy (02/08/20) With Benz's culdoplasty, A&P repair, SIS sling. [place]formed by Dr. Martin Burgess at [facility] [place] Status post excision of lipoma Upper back Status post tubal ligation Family History Father Diabetes Thyroid disease Brother Diabetes Mother Thyroid disease Hypertension Colon cancer Sister Breast cancer Social History Smoking and tobacco status: never smoked Alcohol intake: current Alcohol intake frequency: holidays/special occasions only Other details last substance use: Denies drug use. Female Reproductive History: Spontaneous abortions: No Physical Exam Const: COMMON NORMALS: no acute distress and patient oriented x3 EXAM LIMITATIONS: no altered mental status and no behavioral limitations GENERAL APPEARANCE: cooperative and anxious HENMT: COMMON NORMALS: normocephalic, atraumatic, hearing grossly normal bilaterally, external ears normal and Normal external nose present HEAD & SCALP: normocephalic and atraumatic FACE & SINUS: normal facial exam NOSE: Normal external nose present EXTERNAL EAR: Yes external ears normal THROAT: no uvular edema Eye: COMMON NORMALS: Equal, round and reactive pupils present, EOMs intact bilaterally, conjunctivae normal and no scleral icterus GENERAL EYE: appearance normal, both eyes and all related structures and normal light reflex VISUAL GONZALEZ: No peripheral vision loss CONJUNCTIVA: Yes conjunctivae normal SCLERA: sclerae normal PUPIL: Yes Equal, round and reactive pupils present DIRECT OPHTHALMOSCOPY: Yes normal light reflex Neck/C-Spine: COMMON NORMALS: full ROM CERVICAL SPINE: Yes cervical ROM normal Lymph: LYMPHATIC: no lymphadenopathy noted Chest: COMMONS NORMALS: normal inspection of the chest and normal palpation of entire chest wall Neuro: COMMON NORMALS: patient oriented x3 Course Vital Signs: Vital signs: Vital Signs Temperature 97.8 F 10/19/22 05:32 Pulse Rate 50 L 10/19/22 08:30 Respiratory Rate 16 10/19/22 07:38 Blood Pressure 179/88 10/19/22 09:00 Pulse Oximetry 99 10/19/22 08:30 Oxygen Delivery Me thod 10/19/22 08:30 MDM - Headache Medical Decision Making 67-year-old female with headache worse from baseline. Head CT negative. Vitals nonactionable. Urinalysis negative. Considered delayed occult intracranial hemorrhage/subarachnoid hemorrhage, migrainous headache acute on chronic, tension headache, electrolyte derangements, anemia, other referred sources of head pain. No evidence of these on physical examination today. And patient discharged. Advised of findings during his encounter and told to return for any increasing symptoms. 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 Lab Data Radiology Impressions Head CT 10/19/22 06:31 IMPRESSION: 1. No acute intracranial hemorrhage or mass effect. 2. Paranasal sinus findings as discussed above. 3. Other findings discussed above. Laboratory Results Urine Color Yellow (Yellow) 10/19/22 06:22 Urine Appearance Clear (CLEAR) 10/19/22 06:22 Urine pH 5 (5-7) 10/19/22 06:22 Ur Specific [place] 1.020 (1.005-1.030) 10/19/22 06:22 Urine Protein Neg (Negative) 10/19/22 06:22 Urine Glucose (UA) Norm (Normal) 10/19/22 06:22 Urine Ketones Negative (Negative) 10/19/22 06:22 Urine Blood Neg (Negative) 10/19/22 06:22 Urine Nitrate Negative (Negative) 10/19/22 06:22 Urine Bilirubin Neg (Negative) 10/19/22 06:22 Urine Urobilinogen Norm mg/dL (Negative) 10/19/22 06:22 Ur Leukocyte Esterase Negative (Negative) 10/19/22 06:[address] Head: My impression: No acute intracranial pathology Discharge Plan Discharge Patient Disposition: Home, Self-Care w Plan Readm Clinical Impression: Migraine Condition: Stable Prescriptions: No Action metoprolol tartrate 25 mg tablet 25 mg PO BID losartan 100 mg tablet 100 mg PO DAILY furosemide 40 mg tablet 40 mg PO DAILY allopurinol 100 mg tablet 100 mg PO DAILY levothyroxine 100 mcg capsule 125 mcg PO DAILY ibuprofen 600 mg tablet 600 mg PO Q8H PRN multivitamin Tablet 1 tab PO DAILY cholecalciferol (vitamin D3) 125 mcg (5,000 unit) tablet 125 mcg PO DAILY zinc 50 mg tablet 50 mg PO DAILY ascorbate calcium (vitamin C) 500 mg tablet 500 mg PO DAILY paroxetine HCl 20 mg tablet 20 mg PO DAILY acetaminophen [Arthritis Pain Relief (acetam)] 650 mg tablet extended release 650 mg PO Q8H PRN Premarin 0.625 mg/gram cream 0.625 mg VAGINAL .COMPLEX PRN Rx Instructions: 0.625 mg vaginal Twice weekly; PRN; Discharge Orders: Discharge ED (Routine); Ordered 10/19/22 Ordered By: Dustin Vides Referrals: Dustin Moran DO [Primary Care Provider] - (for headache follow-up. Return to the emergency department immediately for failure of resolution of her symptoms, new symptoms, other concerning findings 2.) Discharge Diet: Usual diet Discharge Activity: Resume usual activity Coding Level of Care Code ED Fire Pilot for Alejandro Mills
[2022-10-19 08:52] LABS: Add Urine Microscopic? NO; Charge for UA Resulting for Rev
--- NOTE | 2022-10-19 09:14 | PC.NURSE ---
pt resting in bed, appears asleep. respirations even and unlabored. visitor at bedside.
[2022-10-19 09:22] LABS: Bilirubin Urine Neg (Negative); Blood Urine Neg (Negative); Glucose Urine UA Norm (Normal); Ketones Urine Negative (Negative); Leukocyte Esterase Urine Negative (Negative); Nitrate Urine Negative (Negative); Protein Urine Neg (Negative); Urine Appearance Clear (CLEAR); Urine Color Yellow (Yellow); Urobilinogen Urine Norm (Negative); pH Urine 5 (5-7)
== END 2022-10-19 10:27 | disposition home or self-care, planned readmission (81) ==
PROVIDERS: Emergency Provider General Practice; PCP Family Medicine
DX: G43.909 Migraine, unspecified, not intractable, without status migrainosus (principal); I10 Essential (primary) hypertension
CPT/HCPCS: 70450; 81003; 96361; 96374; 96375; 99285; J0780; J1200; J7030

== ENCOUNTER 2022-11-21 06:40 | Outpatient (CLI) | payer MEDICARE, SELFPAY ==
--- NOTE | 2022-11-21 | CTR_ITS ---
PROCEDURE INFORMATION: Exam: CT Chest With Contrast; Diagnostic Exam date and time: 11/21/2022 7:02 AM Age: 67 years old Clinical indication: Abnormal findings; Other: Widening of mediastinum; Patient HX: History--f/u cxr; Additional info: Wheezing TECHNIQUE: Imaging protocol: Diagnostic computed tomography of the chest with contrast. Radiation optimization: All CT scans at this facility use at least one of these dose optimization techniques: automated exposure control; mA and/or kV adjustment per patient size (includes targeted exams where dose is matched to clinical indication); or iterative reconstruction. Contrast material: OMNI 350; Contrast volume: 100 ml; Contrast route: INTRAVENOUS (IV); REPORTING DATA: Count of CT and Cardiac NM exams in prior 12 months: This patient has received [address] and 0 known cardiac nuclear medicine studies in the 12 months prior to the current study. COMPARISON: CR XR chest 2V* [id number] 07/05/2022 9:32 AM RADIATION DOSE METRICS: Total DLP (mGy-cm): 505.31 FINDINGS: Lungs: Calcified granuloma at the left lung base. Pleural spaces: Unremarkable. No pneumothorax. No pleural effusion. Heart: Unremarkable. No cardiomegaly. No pericardial effusion. Lymph nodes: Calcified lymph nodes in left hilar region. Vasculature: Unremarkable. No aortic aneurysm. Spleen: Small splenule. Bones/joints: Unremarkable. No acute fracture. Soft tissues: Unremarkable. CT/CT chest w con* [id number] IMPRESSION: No acute abnormality.
[2022-11-21] MEDS: iohexol 350 mg/mL 500 mL Btl (per mL) IV (06:48)
== END 2022-11-21 06:41 | disposition home or self-care (01) ==
LOC: RAD 06:42
PROVIDERS: PCP Family Medicine; Visit Provider Family Medicine
DX: R06.2 Wheezing (principal)
CPT/HCPCS: 71260; Q9967

== ENCOUNTER 2023-01-30 06:00 | Outpatient (RCR) | payer MEDICARE, SELFPAY | END 2023-02-28 23:59 | disposition home or self-care (01) | LOC: MPT 06:00 | PROVIDERS: Visit Provider Physician Assistant Surgical | DX: Z47.1 Aftercare following joint replacement surgery (principal) | CPT/HCPCS: 97110; 97140; 97161; G0283 ==

== ENCOUNTER 2023-03-01 06:00 | Outpatient (RCR) | payer MEDICARE, SELFPAY | END 2023-03-13 23:59 | disposition home or self-care (01) | LOC: MPT 06:00 | PROVIDERS: Visit Provider Physician Assistant Surgical | DX: Z47.1 Aftercare following joint replacement surgery (principal) | CPT/HCPCS: 97110; G0283 ==

== ENCOUNTER 2023-05-13 10:10 | Outpatient (RCR) | payer MEDICARE, SELFPAY | END 2023-05-31 23:59 | disposition home or self-care (01) | LOC: MPT 10:10 | PROVIDERS: Visit Provider Physician Assistant Surgical | DX: Z47.1 Aftercare following joint replacement surgery (principal); Z96.652 Presence of left artificial knee joint | CPT/HCPCS: 97110; 97161; G0283 ==

== ENCOUNTER 2023-06-01 06:00 | Outpatient (RCR) | payer MEDICARE, SELFPAY | END 2023-07-01 23:59 | disposition home or self-care (01) | LOC: MPT 06:00 | PROVIDERS: Visit Provider Physician Assistant Surgical | DX: Z47.1 Aftercare following joint replacement surgery (principal); Z96.652 Presence of left artificial knee joint | CPT/HCPCS: 97110; G0283 ==

== ENCOUNTER 2023-06-25 17:33 | Emergency (ER) | payer MEDICARE, SELFPAY ==
[2023-06-25 17:52] VITALS: BP 144/84; PULSE 102; RESP 18; TEMP 38.7; O2SAT 96; BMI 36.3
--- NOTE | 2023-06-25 19:02 | ED_ITS ---
HPI - Female Genitourinary General: Chief complaint: Urogenital-Female Stated complaint: Ball sent for possible urogenital Time Seen by Provider: 06/25/23 17:58 History of Present Illness: Patient presents to the ER with complaints of urinary frequency pain burning and urgency. Patient went to her family doctor today and had a UA test done but was sent away with no medicine and does not know the results of it. Patient does have a fever of 101.7 as well as a pulse of 102. Patient does states she gets urinary tract infections frequently. Otherwise patient has no complaints at this time. Review of Systems General: Reports: 10 or more systems reviewed and unremarkable except in HPI and below PFSH ED PFSH: Medical History Abnormal mammogram of left breast Bradycardia Gout Hypertension Hypothyroidism Surgical History History of cataract surgery (~11/2018) both eyes History of dilation and curettage History of total vaginal hysterectomy (02/08/20) With Benz's culdoplasty, A&P repair, SIS sling. Performed by Dr. Martin Burgess at [facility]. Status post excision of lipoma Upper back Status post tubal ligation Family History Father Diabetes Thyroid disease Brother Diabetes Mother Thyroid disease Hypertension Colon cancer Sister Breast cancer Social History Smoking and tobacco/nicotine status: never used tobacco/nicotine Alcohol intake: current Alcohol intake frequency: holidays/special occasions only Substance/Drug Use: never Female Reproductive History: Spontaneous abortions: No Physical Exam Const: COMMON NORMALS: no acute distress, average body habitus, patient oriented x3, no limitations, healthy appearing, alert and well nourished HENMT: COMMON NORMALS: normocephalic, atraumatic, hearing grossly normal bilaterally, external ears normal, Normal external nose present, moist oral mucous membranes and oropharynx normal HEAD & SCALP: normocephalic and atraumatic NOSE: Normal external nose present EXTERNAL EAR: Yes external ears normal Neck/C-Spine: COMMON NORMALS: full ROM, no lymphadenopathy, supple, no menin geal signs, no JVD and Thyroid normal THYROID: Thyroid normal Chest: COMMONS NORMALS: normal inspection of the chest and normal palpation of entire chest wall Resp: COMMON NORMALS: normal respiratory effort, No retractions, No use of accessory muscles and clear to auscultation bilaterally AUSCULTATION: clear to auscultation bilaterally Cardio: COMMON NORMALS: no JVD, regular rate, regular rhythm, S1 normal heart sound present, S2 normal heart sound present, No gallops present (Cardio), No clicks present (Cardio), No murmurs present (Cardio) and No rub (Cardio) RA TE: regular rate RHYTHM: regular rhythm HEART SOUNDS: S1 normal heart sound present and S2 normal heart sound present GI: COMMON NORMALS: Normal to inspection, nondistended, normoactive bowel sounds present, Soft to palpation, non-tender, No hepatosplenomegaly present and no masses PALPATION: Yes Soft to palpation and Yes No hepatosplenomegaly present Neuro: COMMON NORMALS: patient oriented x3 SENSORIUM/ORIENTATION: Yes alert MENINGEAL SIGNS: Yes no meningeal signs Course Vital Signs: Vital signs: Vital Signs Temperature 101.7 F H 06/25/23 17:52 Pulse Rate 89 06/25/23 20:50 Respiratory Rate 16 06/25/23 20:50 Blood Pressure 132/75 06/25/23 20:50 Pulse Oximetry 93 06/25/23 20:50 Oxygen Delivery Me thod Room Air 06/25/23 20:50 MDM - Female Medical Decision Making Patient presents to the ER for urinary tract infection symptoms. UA was obtained which showed patient does have urinary tract infection. Patient was given Levaquin 500 mg and 1 g of Tylenol. Her temperature decreased from 101.7 down to 99.7. Patient be given a prescription for Levaquin and discharge. Patient is to follow-up with her family practice physician within the next 7 days or sooner as needed. Differential Diagnosis Unlikely abdominal pain, acute appendicitis, calculus of kidney, constipation, diverticulitis, endometriosis, gastroenteritis, pancreatitis or small bowel obstruction Medical Records I reviewed the patient's medical records. Lab Data I reviewed the patient's lab results. Laboratory Results Urine Color Yellow (Yellow) 06/25/23 19:45 Urine Appearance Hazy (CLEAR) A 06/25/23 19:45 Urine pH 8 (5-7) H 06/25/23 19:45 Ur Specific [place] 1.010 (1.005-1.030) 06/25/23 19:45 Urine Protein 1+ (Negative) H 06/25/23 19:45 Urine Glucose (UA) Norm (Normal) 06/25/23 19:45 Urine Ketones Negative (Negative) 06/25/23 19:45 Urine Blood 3+ (Negative) H 06/25/23 19:45 Urine Nitrate Negative (Negative) 06/25/23 19:45 Urine Bilirubin Neg (Negative) 06/25/23 19:45 Prot Sulfosalicylic Acd Negative (Negative) 06/25/23 19:45 Urine Urobilinogen 1 mg/dL (Negative) H 06/25/23 19:45 Ur Leukocyte Esterase 1+ (Negative) H 06/25/23 19:45 Urine RBC 25-40 /hpf (0-2) H 06/25/23 19:45 Urine WBC 40-55 /hpf (0-5) H 06/25/23 19:45 Ur Squamous Epith Cells None /hpf (0-5) 06/25/23 19:45 Amorphous Sediment Not Reportable 06/25/23 19:45 Urine Bacteria 3+ /hpf (NONE) H 06/25/23 19:45 No radiology studies performed this visit Discharge Plan Discharge Patient Disposition: Home Clinical Impression: Urinary tract infection Qualifiers: Urinary tract infection type: acute cystitis Hematuria presence: with hematuria Qualified Code(s): N30.01 - Acute cystitis with hematuria Condition: Stable Prescriptions: New levofloxacin 500 mg tablet 500 mg PO DAILY 7 Days Qty: 7 0RF No Action metoprolol tartrate 25 mg tablet 25 mg PO BID losartan 100 mg tablet 100 mg PO DAILY furosemide 40 mg tablet 40 mg PO DAILY allopurinol 100 mg tablet 100 mg PO DAILY levothyroxine 100 mcg capsule 125 mcg PO DAILY ibuprofen 600 mg tablet 600 mg PO Q8H PRN multivitamin Tablet 1 tab PO DAILY cholecalciferol (vitamin D3) 125 mcg (5,000 unit) tablet 125 mcg PO DAILY zinc 50 mg tablet 50 mg PO DAILY ascorbate calcium (vitamin C) 500 mg tablet 500 mg PO DAILY paroxetine HCl 20 mg tablet 20 mg PO DAILY acetaminophen [Arthritis Pain Relief (acetam)] 650 mg tablet extended release 650 mg PO Q8H PRN Premarin 0.625 mg/gram cream 0.625 mg VAGINAL .COMPLEX PRN Rx Instructions: 0.625 mg vaginal Twice weekly; PRN; Discharge Orders: Discharge ED (Routine); Ordered 06/25/23 Ordered By: Ángel Cabrera Referrals: Dustin Moran, [Primary Care Provider] - 7-10 days Patient Instructions: Urinary Tract Infection - Women Activity Restrictions/Additional Instructions: Please take your medicine as directed. Please take the levofloxacin starting tomorrow as you have been giving a dose in the ER tonight. Please follow-up with your family practice physician within the next 7 to 10 days for further evaluation and treatment as needed. Coding Level of Care Code ED Building Components Designer for Alejandro Mills
[2023-06-25] MEDS: acetaminophen 500 mg Tablet 1000 MG PO (19:54)
[2023-06-25 20:17] LABS: Protein Urine 1+ (Negative); Urine Appearance Hazy (CLEAR); Urine Color Yellow (Yellow); pH Urine 8 (5-7)
[2023-06-25 20:18] LABS: Add Urine Culture? Yes; Add Urine Microscopic? YES; Bacteria Urine 3+ /hpf; Bilirubin Urine Neg (Negative); Blood Urine 3+ (Negative); Glucose Urine UA Norm (Normal); Ketones Urine Negative (Negative); Leukocyte Esterase Urine 1+ (Negative); Nitrate Urine Negative (Negative); RBC Urine 25-40 /hpf (0-2); Sulfosalicylic Acid Urine Negative (Negative); Urobilinogen Urine 1 mg/dL (Negative); WBC Urine 40-55 /hpf (0-5)
[2023-06-25] MEDS: levoFLOXacin 500 mg Tablet PO (20:39)
[2023-06-25 20:50] VITALS: BP 132/75; PULSE 89; RESP 16; O2SAT 93
[2023-06-25 21:04] VITALS: BP 120/74; PULSE 90; RESP 16; TEMP 37.3; O2SAT 92
== END 2023-06-25 21:05 | disposition home or self-care (01) ==
PROVIDERS: Emergency Provider Emergency Medicine; PCP Family Medicine
DX: N30.01 Acute cystitis with hematuria (principal); I10 Essential (primary) hypertension
CPT/HCPCS: 81001; 87077; 87086; 87186; 99283

== ENCOUNTER 2023-08-07 11:34 | Outpatient (CLI) | payer MEDICARE, SELFPAY ==
--- NOTE | 2023-08-07 11:36 | MM_ITS ---
WS: [id number] BILATERAL SCREENING DIGITAL TOMOSYNTHESIS MAMMOGRAM WITH CAD HISTORY: SCREENING COMPARISON: 10/30/2020, 09/25/2020, 07/26/2019 Bilateral CC and MLO views with tomosynthesis and synthetic mammography submitted. Computer aided det ection analyzed. Breast composition: There are scattered areas of fibroglandular density. No suspicious masses, microc alcifications or architectural distortion. Benign calcifications in each breast. Biopsy clip in the m edial LEFT breast is stable. The adjacent soft tissue mass is not increasing in size. IMPRESSION: MM/[place] [id number] BI-RADS: 2-Benign FOLLOW UP: 1 Year Follow-up
== END 2023-08-07 11:35 | disposition home or self-care (01) ==
LOC: MOBLMAM 11:44
PROVIDERS: PCP Family Medicine; Visit Provider Family Medicine
DX: Z12.31 Encounter for screening mammogram for malignant neoplasm of breast (principal)
CPT/HCPCS: 77063; 77067

== ENCOUNTER → 2023-12-04 13:15 | Outpatient (BNVA) | payer MEDICARE, SELFPAY | PROVIDERS: PCP Family Medicine; Visit Provider Nurse Practitioner Family | DX: D48.5 Neoplasm of uncertain behavior of skin (principal); D22.5 Melanocytic nevi of trunk; L81.4 Other melanin hyperpigmentation; L82.1 Other seborrheic keratosis; L57.8 Other skin changes due to chronic exposure to nonionizing radiation | CPT/HCPCS: 11104; 99213 ==

== ENCOUNTER 2024-05-18 14:30 | Outpatient (CLI) | payer MEDICARE, SELFPAY ==
--- NOTE | 2024-05-18 14:36 | XR_ITS ---
WS: [id number] DEXA (DUAL ENERGY X-RAY ABSORPTIOMETRY) Bone mineral density was performed using a Space Pencil machine. HISTORY: POSTMENOPAUSAL COMPARISON: 07/26/2019 Lumbar spine BMD (L1-L4): 1.369 g/cm2 T score: 1.6 Z score: 2.1 Total hip BMD: Left: 0.976 g/cm2. T score: -0.3 Z score: 0.4 Right: 1.024 g/cm2. T score: 0.1 Z score: 0.8 10 year probability of a major osteoporotic fracture is 7.8%. Compared to the prior study from 07/26/2019. Lumbar spine bone mineral density has increased by 4.2%. Bilateral hips bone mineral density has decreased by 5.7%. XR/XR DEXA axial skeleton* [id number] IMPRESSION: NORMAL BONE MINERAL DENSITY based upon the WHO classification for females. Significant increase in bone mineral density within the lumbar spine since the prior study. Significant decrease in bone mineral density in the hips since the prior study.
== END 2024-05-18 14:33 | disposition home or self-care (01) ==
PROVIDERS: PCP Family Medicine; Visit Provider Nurse Practitioner Family
DX: Z78.0 Asymptomatic menopausal state (principal)
CPT/HCPCS: 77080

== ENCOUNTER 2024-08-26 10:19 | Outpatient (CLI) | payer MEDICARE, SELFPAY ==
--- NOTE | 2024-08-26 10:20 | MM_ITS ---
WS: [id number] BILATERAL SCREENING DIGITAL TOMOSYNTHESIS MAMMOGRAM WITH CAD HISTORY: SCREENING COMPARISON: 08/07/2023, 10/30/2020 Bilateral CC and MLO views with tomosynthesis and synthetic mammography submitted. Computer aided det ection analyzed. Breast composition: There are scattered areas of fibroglandular density. No suspicious masses, microc alcifications or architectural distortion. Scattered benign calcifications in each breast. MM/MM scr BI tomosynthesis [id number] IMPRESSION: BI-RADS: 2 - Benign. FOLLOW UP: 1 Year Follow-up
== END 2024-08-26 10:20 | disposition home or self-care (01) ==
LOC: MOBLMAM 10:22
PROVIDERS: PCP Family Medicine; Visit Provider Family Medicine
DX: Z12.31 Encounter for screening mammogram for malignant neoplasm of breast (principal); R92.323 Mammographic fibroglandular density, bilateral breasts; R92.1 Mammographic calcification found on diagnostic imaging of breast
CPT/HCPCS: 77063; 77067

== ENCOUNTER → 2024-12-03 08:14 | Outpatient (BNVA) | payer MEDICARE, SELFPAY | PROVIDERS: PCP Family Medicine; Visit Provider Nurse Practitioner Family | DX: L82.1 Other seborrheic keratosis (principal); D23.71 Other benign neoplasm of skin of right lower limb, including hip; L90.5 Scar conditions and fibrosis of skin; Q82.5 Congenital non-neoplastic nevus; L57.8 Other skin changes due to chronic exposure to nonionizing radiation; X32.XXXA Exposure to sunlight, initial encounter | CPT/HCPCS: 99213 ==

== ENCOUNTER 2025-07-11 17:07 | Emergency (ER) | payer MEDICARE, SELFPAY ==
[2025-07-11 17:10] VITALS: BP 152/82; PULSE 62; TEMP 36.6; O2SAT 97; BMI 32.5
--- OUTSIDE RECORDS SUMMARY | 2025-07-11 17:14 | XMS_ITS | Encounter Summary ---
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
--- OUTSIDE RECORDS SUMMARY | 2025-07-11 17:14 | XMS_ITS | Encounter Summary ---
Author Organization [email or web address] [facility] Address [address] [place] [address] Care Team Providers Care Corn Picker Name Role Phone Albert Gamino MD Primary Care Provider [phone] Encounter Details Date Type Department Care Team (Latest Contact Info) Description 07/06/2002 Outpatient Historical [facility] Pulmonary Rehab [address] [place] [address] Albert Gamino MD [address] [place] [address] HEALTHY PERSON W SICK (Primary Dx) Social History Tobacco Use Types Packs/Day Years Used Date Smoking Tobacco: Never Assessed Comments Unknown Sex and Gender Information Value Date Recorded Sex Assigned at Not on file 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
--- OUTSIDE RECORDS SUMMARY | 2025-07-11 17:14 | XMS_ITS | Encounter Summary ---
Author Organization [facility] Address [address] 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
--- OUTSIDE RECORDS SUMMARY | 2025-07-11 17:14 | XMS_ITS | Clinical Summary ---
Author Organization [facility] Address [address] 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 Gender Identity Not on file Sexual Orientation Not on file Plan of Treatment Health Maintenance Due Date Last Done Comments DTAP/TDAP/TD VACCINES (1 - Tdap) 1972 BREAST CANCER SCREENING 1993 COLORECTAL SCREENING 1998 Colorectal Cancer Screening 1998 FIT-DNA Q 3 years 1998 FIT/FOBT Q 1 year 1998 Flex Sig/CT Colonography Q 5 years 1998 PNEUMOCOCCAL VACCINE 50+ YEARS (1 of 1 - PCV) 08/13/20 03 ZOSTER VACCINE (1 of 2) 2003 OSTEOPOROSIS SCREENING 2018 INFLUENZA VACCINE (#1) 2025 RSV VACCINE (60+ or ) (1 - 1-dose 75+ series) 2028 Care Teams Dynamics Ax Developer Relationship Specialty Start Date End Date Albert Gamino MD [address] [place] [address] PCP - General 07/06/02
--- OUTSIDE RECORDS SUMMARY | 2025-07-11 17:14 | XMS_ITS | Clinical Summary ---
Author Organization [employer] [facility] Address [address] 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
--- OUTSIDE RECORDS SUMMARY | 2025-07-11 17:14 | XMS_ITS | Encounter Summary ---
Author Organization [facility] Address [address] [place] [address] Care Team Providers Care Telecommunications Analyst Name Role Phone Albert Gamino MD Primary Care Provider [phone] Encounter Details Date Type Department Care Team (Late st Contact Info) Description 08/06/2002 Outpatient [facility] Cardio Pulmonary Rehab [address] [place] [address] Albert Gamino MD [address] [place] [address] Social History Tobacco Use Types Packs/Day Years Used Date Smoking Tobacco: Never Assessed Comments Unknown Sex and Gender Information Value Date Recorded Sex Assigned at Not on file 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
--- NOTE | 2025-07-11 17:28 | W.ED.WOUNDLC ---
HPI - Wound/Laceration General: Chief Complaint: Wound/Laceration Stated Complaint: Goat butted her lac on lip Time Seen by Provider: 07/11/25 17:19 Source: patient Mode of arrival: ambulatory Limitations: no limitations History of Present Illness: Patient is a 69-year-old female who presents the emergency department after several laceration to her top lip. She was rammed in the face by a goat, there is exposure of teeth but no injury to her dentition, though she does note she wears dentures. No active bleeding at this time, she did not lose consciousness and is not on a blood thinner. No contamination or debris. Vitals are stable, bleeding controlled at this time. States that her tetanus is up-to-date. Onset (ago): minute(s) Location: face Place: outdoors Patient tetanus UTD: No Context: accidental Associated symptoms: Denies chills, fever(s), nausea or vomiting Related Data Home Medications ?Medication ?Instructions ?Recorded ?Confirmed furosemide 40 mg tablet 40 mg PO DAILY 11/04/19 12/03/22 losartan 100 mg tablet 100 mg PO DAILY 11/04/19 12/03/22 metoprolol tartrate 25 mg tablet 25 mg PO BID 11/04/19 12/03/22 ibuprofen 600 mg tablet 600 mg PO Q8H PRN 02/21/20 12/03/22 allopurinol 100 mg tablet 100 mg PO DAILY 08/01/20 12/03/22 cholecalciferol (vitamin D3) 125 125 mcg PO DAILY 08/01/20 12/03/22 mcg (5,000 unit) tablet multivitamin 1 tab PO DAILY 08/01/20 12/03/22 ascorbate calcium (vitamin C) 500 500 mg PO DAILY 11/03/20 12/03/22 mg tablet zinc 50 mg tablet 50 mg PO DAILY 11/03/20 12/03/22 conjugated estrogens 0.625 mg/gram 0.625 mg vaginal .COMPLEX PRN 08/01/21 12/03/22 vaginal cream (Premarin) levothyroxine 100 mcg capsule 125 mcg PO DAILY 08/01/21 12/03/22 acetaminophen 650 mg 650 mg PO Q8H PRN 08/01/22 12/03/22 tablet,extended release (Arthritis Pain Relief (acetaminophen) ER) paroxetine HCl 20 mg tablet 20 mg PO DAILY 08/01/22 12/03/22 Previous Rx's ?Medication ?Instructions ?Recorded doxycycline hyclate 100 mg tablet 100 mg PO BID 5 days #10 tabs 07/11/25 hydrocodone 5 mg-acetaminophen 325 1 tab PO Q8H PRN pain #15 tabs 07/11/25 mg tablet Allergies Allergy/AdvReac Type Severity Reaction Status Date / Time amoxicillin Allergy rash Verified 07/11/25 17:17 Review of Systems General: Reports: 10 or more systems reviewed and unremarkable except in HPI and below Const: Denies: fever(s) or chills Card: Denies: chest pain Resp: Denies: dyspnea GI: Denies: abdominal pain, nausea, vomiting or diarrhea Musc: Denies: extremity pain or joint pain Skin/Breast: Reports: new lesions (lip laceration); Denies: rash, skin pain or skin tenderness Neuro: Denies: headache(s) PFSH ED PFSH: Medical History Bradycardia Abnormal mammogram of left breast Hypertension Gout Hypothyroidism Surgical History History of total vaginal hysterectomy (02/08/20) With Benz's culdoplasty, A&P repair, SIS sling. Performed by Dr. Martin Burgess at [facility] [place]. Status post excision of lipoma Upper back History of cataract surgery (~11/2018) both eyes History of dilation and curettage Status post tubal ligation Family History Father Diabetes Thyroid disease Brother Diabetes Mother Thyroid disease Hypertension Colon cancer Sister Breast cancer Social History Smoking and tobacco/nicotine status: never used tobacco/nicotine Alcohol intake: current Alcohol intake frequency: holidays/special occasions only Substance/Drug Use: never Female Reproductive History: Spontaneous abortions: No Physical Exam Const: COMMON NORMALS: no acute distress, average body habitus, patient oriented x3, no limitations, healthy appearing, alert and well nourished Neck/C-Spine: COMMON NORMALS: full ROM, no lymphadenopathy, supple and no meningeal signs Extremity: COMMON NORMALS: full ROM and capillary refill normal Neuro: COMMON NORMALS: patient oriented x3 SENSORIUM/ORIENTATION: Yes alert MENINGEAL SIGNS: Yes no meningeal signs Skin: COMMON NORMALS: turgor normal NARRATIVE SKIN EXAM: Through and through laceration to the upper lip involving the vermilion border and measures approximately 2 cm. No active bleeding. No foreign body or contamination present at this time. GENERAL SKIN EXAM: turgor normal Procedures Laceration Laceration 1: Site: face and lip Size (cm): 2 Description: irregular and involves maegan border Depth: [id number] Local Anesthetic: lidocaine 1% and with epi Amount of anesthesia used (mL): 2 Pre-repair: wound explored and irrigated extensively Skin layer closed with: nylon Size (cm): 5-0 Number of sutures: 6 Technique: simple, interrupted Subcutaneous layer closed with: vicryl Size: 4-0 Number of sutures: 4 Technique: simple, interrupted Course Vital Signs: Vital signs: Vital Signs Temperature 97.8 F 07/11/25 17:10 Pulse Rate 61 07/11/25 18:17 Respiratory Rate 16 07/11/25 18:17 Blood Pressure 128/105 07/11/25 18:17 Pulse Oximetry 96 07/11/25 18:17 Oxygen Delivery Me thod Room Air 07/11/25 17:10 MDM - Wound/Laceration Medical Decision Making Patient presented after being rammed in the face by a goat, causing a through and through laceration of the upper lip. Glue she had dentures and there was no injury to her teeth, no facial pain and she had sensations that were intact and no active bleeding on arrival. Here in the emergency department, she had the wound thoroughly irrigated, and then she had the vermilion border aligned appropriately and had internal sutures placed for the mucosal layer. These are dissolvable, she then had sutures placed to the skin layer and she tolerated the procedure well, please refer to the procedure note. Informed of when to have the sutures out and proper wound care at home, and for the through and through nature of the laceration to the face will be started on antibiotics. Her tetanus shot was already up-to-date. No further workup necessary in the ED but she is informed to watch for any signs or symptoms of infection or poor wound healing cosmesis and return. She also will be referred to plastics for reevaluation of the wound to make sure that it is healing well. No radiology studies performed this visit Discharge Plan Discharge Patient Disposition: Home Clinical Impression: Laceration of upper lip, complicated Condition: Stable Prescriptions: New doxycycline hyclate 100 mg tablet 100 mg PO BID 5 Days Qty: 10 0RF hydrocodone-acetaminophen 5-325 mg tablet 1 tab PO Q8H PRN (Reason: pain) Qty: 15 0RF No Action metoprolol tartrate 25 mg tablet 25 mg PO BID losartan 100 mg tablet 100 mg PO DAILY furosemide 40 mg tablet 40 mg PO DAILY allopurinol 100 mg tablet 100 mg PO DAILY levothyroxine 100 mcg capsule 125 mcg PO DAILY ibuprofen 600 mg tablet 600 mg PO Q8H PRN multivitamin Tablet 1 tab PO DAILY cholecalciferol (vitamin D3) 125 mcg (5,000 unit) tablet 125 mcg PO DAILY zinc 50 mg tablet 50 mg PO DAILY ascorbate calcium (vitamin C) 500 mg tablet 500 mg PO DAILY paroxetine HCl 20 mg tablet 20 mg PO DAILY acetaminophen [Arthritis Pain Relief (acetam)] 650 mg tablet extended release 650 mg PO Q8H PRN Premarin 0.625 mg/gram cream 0.625 mg VAGINAL .COMPLEX PRN Rx Instructions: 0.625 mg vaginal Twice weekly; PRN; Discharge Orders: Discharge ED (Routine); Ordered 07/11/25 Ordered By: Cedric Little Referrals: Dustin Moran DO [Primary Care Provider, Family Practice] Patient Instructions: Patient Portal & Bobby Instructions Activity Restrictions/Additional Instructions: Upper Lip Laceration Discharge Wound Care: - Keep the wound clean and dry for the first 24 hours. After that, you may gently clean the area with mild soap and water once daily. Pat dry?do not rub. - Apply a thin layer of petroleum jelly or antibiotic ointment if recommended, and cover with a clean, non-stick bandage. Change the dressing daily or if it becomes wet or dirty. - Avoid picking at scabs or sutures. Do not apply makeup or creams to the area until fully healed. Suture Care: - The dissolvable sutures inside the lip will dissolve on their own in 1?2 weeks. The skin sutures will need to be removed in 5?7 days; follow up as scheduled. - Watch for any loose or missing sutures and notify your provider if this occurs. Activity: - Avoid strenuous activity or anything that may put tension on the lip for at least one week. - Do not chew hard or sharp foods; opt for soft foods to avoid trauma to the area. Medications: - Take doxycycline as prescribed (twice daily for 5 days). Take with a full glass of water and remain upright for at least 30 minutes to reduce stomach upset. Complete the full course, even if you feel better. - Take hydrocodone only as needed for pain. Use the lowest effective dose and avoid driving or operating machinery while taking this medication. Be aware of possible side effects such as drowsiness and constipation. Use a stool softener or laxative if needed. - If you have any medication allergies or experience side effects (rash, difficulty breathing, severe nausea), contact your provider immediately. Infection Prevention: - Signs of infection include increased redness, swelling, warmth, pus, or fever. If any of these occur, contact your provider promptly. - Your wound has been irrigated and closed, and you are receiving antibiotics due to the risk of infection from animal bites and the location of the injury. Immunizations: - Ensure your tetanus vaccination is up to date. If you have not had a tetanus shot in the past 5 years, contact your provider. - Rabies risk from domestic goats is extremely low, but if the animal?s health status is uncertain, discuss with your provider or local health department. Follow-Up: - You have been referred to maxillofacial surgery for routine follow-up. Attend all scheduled appointments. - Return to the emergency department or contact your provider if you experience: - Severe pain not controlled by medication - Bleeding that does not stop with gentle pressure - Signs of infection (see above) - Difficulty breathing, swallowing, or speaking General Advice: - Avoid smoking or alcohol, as these can delay healing. - If you have any questions or concerns about your wound or medications, contact your healthcare provider. Special Considerations for Older Adults: - Be cautious with pain medications, as older adults are more sensitive to side effects. Use a bowel regimen to prevent constipation with opioid use. - If you feel confused, dizzy, or unusually sleepy, notify your provider. Thank you for following these instructions to support your recovery. 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
[2025-07-11] MEDS: lidocaine-epi 2% 20 mL INJ INJECTION (17:29)
[2025-07-11] MEDS: HYDROcodone-acetaminophen 5-325 mg Tablet 1 TAB PO (17:29)
[2025-07-11 18:17] VITALS: BP 128/105; PULSE 61; RESP 16; O2SAT 96
--- NOTE | 2025-07-13 14:45 | DCPLANNER ---
Referral sent to [facility] Plastic surgeon
== END 2025-07-11 18:14 | disposition home or self-care (01) ==
PROVIDERS: Emergency Provider Physician Assistant; PCP Family Medicine
DX: S01.511A Laceration without foreign body of lip, initial encounter (principal); I10 Essential (primary) hypertension; W55.32XA Struck by other hoof stock, initial encounter
CPT/HCPCS: 12051; 99283; 99291; J9999